=== PATIENT | male | born 1995 | race Caucasian/White ===

== ENCOUNTER 2018-05-14 08:51 | Emergency (ER) | payer BC ==
[2018-05-14] MEDS ORDERED: Sodium Chloride 0.9% 1000 ML 1,000 ML IV STA (09:22)
[2018-05-14] MEDS ORDERED: Sodium Chloride 0.9% 1000 ML 1,000 ML ONE (09:42)
[2018-05-14 09:52] LABS: BASOPHIL % 0.8 % (0.0-0.4); Basophil (Absolute #) 0.03 (0-0.4); Eosinophil % 1.5 % (0.00-5.0); Eosinophil (Absolute #) 0.06 (0-0.5); Hematocrit 43.2 % (42-50); Hemoglobin 15.3 gm/dl (12.5-18.0); Lymphocyte (Absolute #) 1.39 (1.0-4.6); Lymphocytes % 35.7 % (24.0-44.0); Mean Cell Volume 88.3 fl (78-100); Mean Corpuscular Hemoglobin 31.3 pg (26-32); Mean Corpuscular Hgb Concent. 35.4 g/dl (32-36); Mean Platelet Volume 11.1 fl (6-9.5); Monocyte (Absolute #) 0.31 (0.0-1.3); Platelet Count 181 K/mm3 (150-450); Red Blood Count 4.89 M/mm3 (4.1-5.6); Red Cell Distribution Width 12.2 % (11.5-14.0); White Blood Count 3.9 K/mm3 (4.0-10.5)
[2018-05-14 10:02] LABS: Appearance CLEAR (CLEAR); Bilirubin NEGATIVE (NEGATIVE); Blood NEGATIVE Ery/ul (0-5); Glucose NEGATIVE (NEGATIVE); Ketones NEGATIVE (NEGATIVE); Leukocyte Esterase NEGATIVE (NEGATIVE); Nitrite NEGATIVE (NEGATIVE); Protein,Urine Dip NEGATIVE (Negative); Specific Gravity 1.024 (1.005-1.025); Urobilinogen 2 mg/dL (0-1)
--- NOTE | 2018-05-14 10:11 | ERPHSYRPT ---
- History of Present Illness Time Seen by Provider: 05/14/18 09:17 Historian: patient Exam Limitations: clinical condition Patient Subjective Stated Complaint: states swallowed an orthodontic piec on thursday, pain on right side of belly button. Triage Nursing Assessment: alert and oriented. states swallowed orthodontic piece on Thursday. states pain amy umbilical area to the right. denies n/v/d. denies fever. tender on right abdomen on paplpation Physician History: PATIENT SWALLOWED A PIECE OF METAL FROM ORTHODONTIC BRACE 5 DAYS AGO, NOW COMPLAINS OF PERIUMBILICAL AND RIGHT LOWER ABDOMINAL PAIN. DENIES FEVER, CHILLS , NAUSEA, EMESIS OR DIARRHEA. Timing/Duration: day(s) Activities at Onset: none Quality: aching Abdominal Pain Onset Location: RLQ Pain Radiation: no radiation Severity of Pain-Max: mild Severity of Pain-Current: mild Modifying Factors: Improves With: nothing Associated Symptoms: denies symptoms Previous symptoms: no prior history Allergies/Adverse Reactions: No Known Drug Allergies Allergy (Verified 05/14/18 09:34) - Review of Systems Constitutional: No Fever, No Chills Eyes: No Symptoms Ears, Nose, & Throat: No Symptoms Respiratory: No Symptoms, No Cough, No Dyspnea Cardiac: No Symptoms, No Chest Pain, No Edema, No Syncope Abdominal/Gastrointestinal: Abdominal Pain, No Nausea, No Vomiting, No Diarrhea Genitourinary Symptoms: No Symptoms, No Dysuria Musculoskeletal: No Symptoms, No Back Pain, No Neck Pain Skin: No Rash Neurological: No Dizziness, No Focal Weakness, No Sensory Changes Psychological: No Symptoms Endocrine: No Symptoms All Other Systems: Reviewed and Negative - Past Medical History Pertinent Past Medical History: Yes GI Medical History: Other Other Medical History: lactose intolerance - Past Surgical History Past Surgical History: Yes - Social History Smoking Status: Never smoker Exposure to second hand smoke: No Drug Use: none Patient Lives Alone: No - Nursing Vital Signs Nursing Vital Signs: Initial Vital Signs Temperature 99.3 F 05/14/18 09:06 Pulse Rate 58 L 05/14/18 09:06 Respiratory Rate 16 05/14/18 09:06 Blood Pressure 101/58 05/14/18 09:06 O2 Sat by Pulse Oximetry 100 05/14/18 09:06 Pain Scale Pain Intensity 3 - Physical Exam General Appearance: no apparent distress, alert Eye Exam: PERRL/EOMI, eyes nml inspection Neck Exam: normal inspection, non-tender, supple, full range of motion Respiratory Exam: normal breath sounds, lungs clear, No respiratory distress Cardiovascular Exam: regular rate/rhythm, normal heart sounds Gastrointestinal/Abdomen Exam: soft, normal bowel sounds, other (MINIMAL RIGHT LOWER QUAD TENDERNESS, NO GUARDING OR REBOUND TENDERNESS) Back Exam: normal inspection, normal range of motion, No CVA tenderness, No vertebral tenderness Extremity Exam: normal inspection, normal range of motion, pelvis stable Neurologic Exam: alert, oriented x 3, cooperative, normal mood/affect, nml cerebellar function, sensation nml, No motor deficits SpO2 Interpretation: normal SpO2: 100 Oxygen Delivery: Room Air - CT Exams Abdomen/Pelvis CT Interpretation: Discussed w/radiologist (NEGATIVE CT OF ABDOMINAL PELVIS WITH INTRAVENOUS CONTRAST), No appendicitis Ordered Tests: Active Orders 24 hr Category Date Time Status IV Insertion STAT Care 05/14/18 09:22 Active ABDOMEN AND PELVIS W CONTRAST [CT] Stat Exams 05/14/18 09:22 Completed AMYLASE Stat Lab 05/14/18 09:38 Completed BMP Stat Lab 05/14/18 09:38 Completed CBC W DIFF Stat Lab 05/14/18 09:38 Completed LIPASE Stat Lab 05/14/18 09:38 Completed UA W/RFX UR CULTURE Stat Lab 05/14/18 09:56 Completed Medication Summary Generic Name Dose Route Start Last Admin Trade Name Freq PRN Reason Stop Dose Admin Sodium Chloride 1,000 mls @ 250 mls/hr 05/14/18 09:22 05/14/18 09:44 Sodium Chloride 0.9% 1000 Ml IV 05/14/18 13:21 250 mls/hr .Q4H STA Administration Discontinued Medications Generic Name Dose Route Start Last Admin Trade Name Freq PRN Reason Stop Dose Admin Sodium Chloride Confirm 05/14/18 09:42 Sodium Chloride 0.9% 1000 Ml Administered 05/14/18 09:43 Dose 1,000 mls @ ud .ROUTE .[facility] Lab/Rad Data: Laboratory Result Diagrams 05/14/18 09:38 05/14/18 09:38 Laboratory Results 05/14/18 05/14/18 05/14/18 Range/Units 09:56 09:38 09:38 WBC 3.9 L (4.0-10.5) K/mm3 RBC 4.89 (4.1-5.6) M/mm3 Hgb 15.3 (12.5-18.0) gm/dl Hct 43.2 (42-50) % MCV 88.3 (78-100) fl MCH 31.3 (26-32) pg MCHC 35.4 (32-36) g/dl RDW 12.2 (11.5-14.0) % Plt Count 181 (150-450) K/mm3 MPV 11.1 H (6-9.5) fl Gran % 54.0 (36.0-66.0) % Eos # (Auto) 0.06 (0-0.5) Absolute Lymphs (auto) 1.39 (1.0-4.6) Absolute Monos (auto) 0.31 (0.0-1.3) Lymphocytes % 35.7 (24.0-44.0) % Monocytes % 8.0 (0.0-12.0) % Eosinophils % 1.5 (0.00-5.0) % Basophils % 0.8 (0.0-0.4) % Absolute Granulocytes 2.10 (1.4-6.9) Basophils # 0.03 (0-0.4) Sodium 141 (137-145) mmol/L Potassium 4.1 (3.5-5.1) mmol/L Chloride 102 (98-107) mmol/L Carbon Dioxide 29 (22-30) mmol/L Anion Gap 14.1 (5-15) MEQ/L BUN 9 (9-20) mg/dL Creatinine 1.11 (0.66-1.25) mg/dL Estimated GFR > 60.0 ML/MIN Glucose 90 (74-106) mg/dL Calcium 9.9 (8.4-10.2) mg/dL Amylase 78 (30-110) U/L Lipase 25 (23-300) U/L Urine Color YELLOW (YELLOW) Urine Appearance CLEAR (CLEAR) Urine pH 5.0 (5-6) Ur Specific [employer] 1.024 (1.005-1.025) Urine Protein NEGATIVE (Negative) Urine Ketones NEGATIVE (NEGATIVE) Urine Blood NEGATIVE (0-5) Bib/ul Urine Nitrite NEGATIVE (NEGATIVE) Urine Bilirubin NEGATIVE (NEGATIVE) Urine Urobilinogen 2 (0-1) mg/dL Ur Leukocyte Esterase NEGATIVE (NEGATIVE) Urine WBC (Auto) 0-2 (0-5) /HPF Urine Mucus (Auto) SLIGHT (NEGATIVE) /HPF Urine Culture Reflexed NO (NO) Urine Glucose NEGATIVE (NEGATIVE) mg/dL - Progress Progress Note: 05/14/18 10:12 IV NORMAL SALINE 250ML/HR, REFUSED ANALGESIA Counseled pt/family regarding: lab results, diagnosis, need for follow-up, rad results - Departure Time of Disposition: 10:40 Departure Disposition: Home Clinical Impression: ABDOMINAL PAIN Condition: Stable Critical Care Time: No Referrals: DOCTOR,NO FAMILY [Primary Care Provider] - Additional Instructions: TYLENOL OR MOTRIN NEEDED FOR PAIN. CONSULT YOUR PRIMARY CARE PROVIDER FOR FOLLOWUP. RETURN TO EMERGENCY ROOM FOR INCREASING PAIN OR ONSET OF FEVER.
[2018-05-14 10:15] LABS: AMYLASE 78 U/L (30-110); ANION GAP 14.1 MEQ/L (5-15); BLOOD UREA NITROGEN 9 mg/dL (9-20); CHLORIDE 102 mmol/L (98-107); Calcium 9.9 mg/dL (8.4-10.2); Carbon Dioxide 29 mmol/L (22-30); Creatinine 1 1.11 mg/dL (0.66-1.25); Glucose 90 mg/dL (74-106); LIPASE 25 U/L (23-300); Potassium 4.1 mmol/L (3.5-5.1); SODIUM 141 mmol/L (137-145)
--- NOTE | 2018-05-14 10:24 | XRAY ---
Indication: Right lower abdomen pain following ingested wire. Multiple contiguous axial images obtained through the abdomen and pelvis using 80 cc Isovue 370 contrast only. Comparison: None Lung bases demonstrates a few tiny calcified granulomas. No infiltrate or effusion. Heart is not enlarged. Noncontrasted stomach and bowel loops appear nonobstructed. No radiopaque foreign body. Normal appendix. No free fluid/air. Tiny hepatic/splenic calcified granulomas. Remaining liver, gallbladder, pancreas, spleen, adrenal glands, kidneys, ureters, bladder, and aorta appear normal in CT appearance and attenuation. No pathologic retroperitoneal lymphadenopathy. Osseous structures intact. Impression: Evidence for old granulomatous disease. Otherwise negative CT abdomen/pelvis with contrast exam. CT DI 10.88
[2018-05-14 11:21] VITALS: BP 100/57; PULSE 64; O2SAT 99
== END 2018-05-14 11:20 | disposition home or self-care (01) ==
LOC: ED 08:51
DX: R10.31 Right lower quadrant pain (principal)
CPT/HCPCS: 36000; 36415; 74177; 80048; 81001; 82150; 83690; 85025; 96360; 96361; 99284